=== PATIENT | male | born 1945 | race Two or more races ===

== ENCOUNTER 2024-05-13 08:16 | Outpatient (CLI) | payer OTHER | END 2024-05-13 08:26 | disposition home or self-care (01) | LOC: SONOGRAMA 08:16 | PROVIDERS: ATTEND Internal Medicine Cardiovascular Disease | DX: I10 Essential (primary) hypertension (principal); N40.0 Benign prostatic hyperplasia without lower urinary tract symptoms; N40.1 Benign prostatic hyperplasia with lower urinary tract symptoms ==

== ENCOUNTER 2024-05-14 09:11 | Outpatient (CLI) | payer OTHER | END 2024-05-14 09:14 | disposition home or self-care (01) | LOC: NUCLEAR 09:11 | PROVIDERS: ATTEND Internal Medicine Cardiovascular Disease | DX: I20.1 Angina pectoris with documented spasm (principal) ==